=== PATIENT | female | born 2000 | race Two or more races ===

== ENCOUNTER 2020-05-18 04:04 | Emergency (ER) | payer OTHER ==
[~2020-05-18] VITALS: Ht 162.6 cm; Wt 64.4 kg
--- NOTE | 2020-05-18 04:39 | NUR ---
PATIENT CAME TO ER BED 16 C/O RECENT SURGICAL ON THE May. PATIENT STATES THAT SHE PASSED 3 LARGE CLOTS A SIZE OF A GOLF BALL AND HAD INCREASED BLEEDING. PATIENT IS AAOX4. NO SOB. BREATHING EVENLY AND UNLABORED ON ROOM AIR. PATIENT CURRENTLY TAKES ANTIBIOTICS FOR HER RECENT . PATIENT HAS HAD A SPONANEOUS . PATIENT IS CURRENTLY BLEEDING AND HAVING CRAMPS.
--- NOTE | 2020-05-18 04:42 | NUR ---
PATIENT STATES THAT A DILATION AND CURRETAGE DEVICE WAS USED TO ASSIST IN HER .
--- NOTE | 2020-05-18 04:47 | NUR ---
BLOOD DRAWN AND SENT TO THE LAB.
[2020-05-18 04:56] LABS: BASOPHILS % (AUTO) 0.3 % (0.0-2.0); EOSINOPHILS % (AUTO) 1.5 % (0.0-6.0); HEMATOCRIT 41 % (33-45); HEMOGLOBIN 13.8 g/dL (11.5-14.8); LYMPHOCYTES # (AUTO) 2.8 /CMM (0.8-4.8); LYMPHOCYTES % (AUTO) 23.4 % (20.0-44.0); MEAN CORPUSCULAR HGB CONC 34 g/dl (31.0-36.0); MEAN CORPUSCULAR VOLUME 90 fL (82-100); MONOCYTES # (AUTO) 0.8 /CMM (0.1-1.30); MONOCYTES % (AUTO) 6.8 % (2.0-12.0); PLATELET COUNT (AUTO) 309 /CMM (150-450); RED BLOOD CELL COUNT(AUTO) 4.55 MIL/uL (4.0-5.2); WHITE BLOOD COUNT (AUTO) 11.8 K/uL (4.3-11.0)
[2020-05-18 05:10] LABS: CALCIUM, SERUM 8.9 mg/dL (8.5-10.1); CREATININE 0.7 mg/dL (0.6-1.3); POTASSIUM 3.5 mmol/L (3.5-5.1)
--- NOTE | 2020-05-18 06:13 | NUR ---
Patient discharged to home in stable condition. Written and verbal after care instructions given. Patient verbalizes understanding of instruction.
[2020-05-18 06:15] VITALS: BP 112/82
== END 2020-05-18 06:12 | disposition home or self-care (01) ==
LOC: ER 04:08
DX: O03.35 Other venous complications following incomplete spontaneous abortion (principal); N93.9 Abnormal uterine and vaginal bleeding, unspecified; R10.30 Lower abdominal pain, unspecified
CPT/HCPCS: 36415; 76856-TC; 80048-TC; 84702-TC; 85025-TC; 86850-TC